=== PATIENT | male | born 1965 | race Caucasian/White ===

== ENCOUNTER 2024-04-15 05:15 | Emergency (ER) | payer MEDICAID ==
[2024-04-15] MEDS ORDERED: Sodium Chloride 0.9% 10 ML Syringe FLUSH PRN (05:37)
[2024-04-15] MEDS: Aspirin 81 MG Tab.Chew PO ONE (05:48)
[2024-04-15 06:09] LABS: HEMATOCRIT 41.4 % (40.0-54.0); HEMOGLOBIN 14.8 g/dL (13.0-18.0); MEAN CORPUSCULAR HEMOGLOBIN 29.5 pg (27.0-32.0); MEAN CORPUSCULAR HGB CONC 35.7 g/dL (31.0-35.0); MEAN PLATELET VOLUME 9.6 fL (6.0-10.0); RED BLOOD CELL COUNT 5.01 M/uL (4.50-6.50); RED CELL DISTRIBUTION WIDTH 13.5 % (11.0-16.0); WHITE BLOOD CELL COUNT,WBC 18.6 K/uL (4.0-11.0)
[2024-04-15 06:27] LABS: ANION GAP 15.3 mmol/L (5.0-15.0); BUN/CREATININE RATIO 22.9 (6-25); CALCIUM 9.2 mg/dL (8.5-10.1); CARBON DIOXIDE,CO2 25.7 mmol/L (21.0-32.0); CREATININE 1.09 mg/dL (0.70-1.30); EST CRCL DRUG DOSING (CG) 75.67 mL/min; TROPONIN I HIGH SENSITIVITY 6.2 pg/ml (<=60.4)
[2024-04-15] MEDS: NS + KCl 20mEq/L 1,000 ML IV SCH (07:03)
[2024-04-15] MEDS: cefTRIAXone 500 MG Vial IVPUSH ONE (07:07)
[2024-04-15 09:29] VITALS: BP 130/85; PULSE 87
== END 2024-04-15 09:25 | disposition home or self-care (01) ==
LOC: LB.ED 05:17
DX: K08.89 Other specified disorders of teeth and supporting structures (principal); E87.6 Hypokalemia; Z79.899 Other long term (current) drug therapy
CPT/HCPCS: 36415; 80048; 84484; 85027; 93005; 93010; 96365; 96366; 96375; 99284; 99285-25; A9270-GY; J0696; J3480